=== PATIENT | female | born 1990 | race Caucasian/White ===

== ENCOUNTER 2017-07-17 16:23 | Outpatient (CLI) | payer OTHER ==
--- NOTE | 2017-07-19 00:52 | XRAY Report ---
EXAM: LEFT ANKLE RADIOGRAPHY EXAM DATE: 07/17/2017 04:43 PM. CLINICAL HISTORY: L PLANTARFASCITIS. COMPARISON: None. TECHNIQUE: 2 views. FINDINGS: Bones: Normal. No fractures or bone lesions. Joints: Normal. No effusion. No subluxations. The ankle mortise is normally aligned. Soft Tissues: Normal. No soft tissue swelling. IMPRESSION: Normal ankle radiography. [facility] Referring Provider Line: [phone] SITE ID: [id number]
== END 2017-07-17 16:24 | disposition home or self-care (01) ==
LOC: DI 16:23
PROVIDERS: ATTEND Physician Assistant
DX: M72.2 Plantar fascial fibromatosis (principal)